=== PATIENT | female | born 2000 | race Caucasian/White ===

== ENCOUNTER 2022-12-07 21:48 | Emergency (ER) | payer SELFPAY ==
[~2022-12-07] VITALS: Ht 167.6 cm; Wt 127.0 kg
[2022-12-07] MEDS ORDERED: predniSONE 20 MG TABLET ONE (22:15)
[2022-12-07] MEDS ORDERED: ALBUTEROL FS 2.5 MG/3 ML VIAL.NEB CONTNEB ONE (22:30)
[2022-12-07] MEDS ORDERED: predniSONE 20 MG TABLET PO ONE (22:30)
[2022-12-07] MEDS ORDERED: IPRATROPIUM NEB FS 0.5 MG/2.5 ML AMPUL.NEB NEB ONE (22:30)
[2022-12-07] MEDS ORDERED: ALBU18HF2 INH (22:43)
[2022-12-07 22:54] VITALS: BP 135/75; TEMP 98.1; O2SAT 98
== END 2022-12-07 22:53 | disposition home or self-care (01) ==
LOC: ER 22:02
DX: J45.909 Unspecified asthma, uncomplicated (principal)
CPT/HCPCS: 99283; J7512